=== PATIENT | female | born 2000 | race Caucasian/White ===

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

== ENCOUNTER 2021-09-02 16:48 | Emergency (ER) | payer OTHER ==
[2021-09-02 17:14] VITALS: BP 114/58; PULSE 100; TEMP 100; BMI 24.6
[2021-09-02 17:56] LABS: HCG,QUALITATIVE URINE Negative
[2021-09-02] MEDS ORDERED: CEPHALEXIN MONOHYDRATE 500 MG CAPSULE (UD) PO ONE (17:59)
[2021-09-02 18:11] LABS: EPITHELIAL CELLS FEW /hpf
[2021-09-02] MEDS ORDERED: CEPHALEXIN MONOHYDRATE 500 MG CAPSULE (UD) ONE (18:27)
== END 2021-09-02 18:34 | disposition home or self-care (01) ==
LOC: FER 16:48
DX: R30.0 Dysuria (principal)
CPT/HCPCS: 36415; 81003; 81015; 84703; 87086; 87186; 87491; 87591; 99283-25